=== PATIENT | female | born 1935 | race Caucasian/White ===

== ENCOUNTER 2019-02-08 16:03 | Emergency (ER) | payer MEDICARE, SELFPAY ==
[2019-02-08 16:05] VITALS: BP 145/74; PULSE 85; RESP 16; TEMP 36.5; O2SAT 97; BMI 17.2
--- NOTE | 2019-02-08 16:16 | EKG12_ITS ---
Test Reason : CP Blood Pressure : / mmHG Vent. Rate : 090 BPM Atrial Rate : 090 BPM P-R Int : 150 ms QRS Dur : 082 ms QT Int : 362 ms P-R-T Axes : 079 074 027 degrees QTc Int : 442 ms Normal sinus rhythm Possible Left atrial enlargement Nonspecific T wave abnormality Borderline ECG Confirmed by GERI RUTH, GERARD ([id number]), editorial director MARISOL LEON ([id number] on 02/11/2019 11:58:16 AM Referred By: KING/ZHANG/NICOLE/JAVY Confirmed By:GERARD NEVAREZ MD
--- NOTE | 2019-02-08 16:16 | RAD_ITS ---
STUDY: X-RAY CHEST REASON FOR EXAM: Female, 83 years old. Lower chest pain today TECHNIQUE: AP COMPARISON: None. FINDINGS: EKG leads project over the chest. The lungs are clear and expanded. There is no demonstrated pleural abnormality. Normal size heart. Normal mediastinum and keya. Normal visualized pulmonary arteries. There is atherosclerotic calcification of the aortic arch with tortuosity. Normal visualized thoracic spine. Normal visualized ribs, clavicles, and shoulders. There is no demonstrated abnormality of the visualized soft tissue structures of the upper abdomen. RAD/Chest 1 View (Portable) IMPRESSION: Nonacute portable x-ray examination of the chest. Electronically Signed: Jordin Murphy MD at 17:01 EDT , Service support ,
[2019-02-08 16:21] VITALS: O2SAT 97
[2019-02-08] MEDS: Aspirin 81 MG TAB.CHEW 324 MG PO (16:27)
[2019-02-08] MEDS: 0.9% Normal Saline 1,000 ML 150 ML IV (16:27)
--- NOTE | 2019-02-08 16:47 | ED.DCSUM_ITS ---
- ER Visit Summary Date of Service: 02/08/19 Chief Complaint: [Chest pain] History of Present Illness: The patient is a 83 F [resents to the emergency department complaint of chest pain started yesterday. Patient states that it was throughout the night and she really had a hard time sleeping. Patient stat es the pain was kind of a sore feeling that was sharp intermittently and also times with 3 or 4 out of 10. She really did not feel short of breath with it. Patient noticed it more when she turned to the left side of her chest. Patient states pain was worse with breathing. Patient had some mild nausea with it and this morning feels somewhat fatigued. Patient was seen at urgent care and was referred to the ER for valuation of her chest pain. She denies any recent travel or surgery. Patient has not had pain like that before. She has no heart history.] Patient is currently not having any chest pain. Physical Examination: [HEENT-PERRLA, EOMI. Cranial nerves II through XII grossly intact. TMs clear. Mucous membranes moist. No adenopathy. Cardiovascular-regular rate and rhythm without murmur or ectopy Lungs-clear to auscultation, chest wall stable without crepitus or subcu emphysema. Chest wall-patient has no tenderness on palpation of the chest wall. Abdomen-normoactive bowel sounds, soft, nontender, no rebound or rigidity, no peritoneal signs. Extremities-intact ?4, normal range of motion, normal pulses, atraumatic] Test Results: [EKG obtained on arrival shows sinus rhythm with a ventricular rate of 90 bpm with no acute ST segment changes. CBC with differential showed a white count of 7.7, hemoglobin 12, hematocrit 36, platelets 327. Chemistries unremarkable. Troponin was less than 0.015. D-dimer was less than 0.27. Chest x-ray was normal.] Emergency Department Course and Treatment: [Patient initially received aspirin on arrival. Patient was pain-free on arrival.] Treatment Plan: [Patient had had symptoms for greater than 12 hours continuously. Her chest discomfort sounds very atypical and her only risk factor for heart disease as her age. Her PEDRO risk score was a 1 out of 7. I feel patient is very low risk for cardiac disease as the etiology of her symptoms. Patient did ask if this could be anxiety. Patient [place] and she is wondering if she was just very anxious and nervous. At this point I advised her to return if persistent or worsening symptoms. Patient to follow-up with her primary care physician within next 3 to 5 days.] Patient is comfortable with going home. Disposition: Discharged home in stable condition. [] Impression: [Chest [id number] uncertain] This note was generated with [employer] dictation software. It may contain incorrect words, spelling, and punctuation that were not noted in review of the chart prior to signing ED Disposition - Plan for ED Patient: Referrals: Julito Lozano MD [Primary Care Provider] -
[2019-02-08 17:07] LABS: Absolute Lymphocyte Count 1.89 X10^3/ul (0.83-4.51); Absolute Neutrophil Count 4.6 X10^3/uL (2.0-7.7); Basophil# 0.04 X10^3/uL; Basophil% 0.5 % (0-1); Eosinophil# 0.11 X10^3/uL; Eosinophils% 1.4 % (0-5); Hematocrit 36.2 % (37-47); Lymphocyte # 1.89 X10^3/ul (4.0); Lymphocyte % 24.6 % (19-41); Mean Corp Hgb Conc 33.1 g/gl (32-36); Mean Corpuscular Hgb 30.5 pg (27.0-32.0); Mean Corpuscular Volume 92.1 fL (81-99); Mean Platelet Vol. 10.2 fl (6.2-12.0); Monocyte# 1.07 X10^3/uL; Neutrophil # 4.55 X10^3/uL (2.7-7.7); Neutrophil % 59.4 % (47-70); POSITIVE COUNT NO; POSITIVE DIFFERENTIAL NO; POSITIVE MORPHOLOGY NO; Platelet Count 327 K/mm3 (150-450); RBC Distribution Width CV 11.7 % (11.6-14.6); RBC Distribution Width SD 39.3 fl (35.1-43.9); Red Blood Count 3.93 M/mm3 (4.2-5.4); White Blood Count 7.7 K/mm3 (4.4-11.0)
[2019-02-08 17:14] LABS: Anion Gap 3 (5-15); BUN 20 mg/dL (7-18); BUN/Creat Ratio 28.2 RATIO (10-20); Calcium,Total 9.8 mg/dL (8.5-10.1); Chloride 102 mmol/L (98-107); Creatinine, Serum 0.71 mg/dL (0.55-1.02); EST Glomerular Filtration Rate 84 mL/min (>60); Est Glom Filt Rate - Afr Amer 102 mL/min (>60); Estimated Creatinine Clearance 30.79 ml/min; Glucose 99 mg/dL (74-106); Potassium 3.7 mmol/L (3.5-5.1); Sodium Level 135 mmol/L (136-145)
[2019-02-08 17:15] LABS: D-Dimer Quantitative (DVT/PE) < 0.27 FEU/ug/m (0.27-0.49)
--- NOTE | 2019-02-08 17:55 | ED.DEP ---
ED Disposition - Plan for ED Patient: Instructions: CHEST PAIN, Uncertain Cause Referrals: Julito Lozano MD [Primary Care Provider] - 3-5 Days
[2019-02-08 18:06] VITALS: BP 135/63; PULSE 72; RESP 16; O2SAT 98
== END 2019-02-08 18:07 | disposition home or self-care (01) ==
LOC: ED 16:52
PROVIDERS: Emergency Provider Emergency Medicine; Family Provider Family Medicine; PCP Family Medicine
DX: R07.89 Other chest pain (principal)
CPT/HCPCS: 71045; 80048; 84484; 85025; 85379; 93005; 96360; 96361; 99284; J7030; A4216

== ENCOUNTER 2023-01-22 17:24 | Emergency (ER) | payer MEDICARE, SELFPAY ==
[2023-01-22 17:27] VITALS: BP 135/60; PULSE 86; RESP 16; TEMP 36.6; O2SAT 96; BMI 15.3
--- NOTE | 2023-01-22 18:40 | EKG12_ITS ---
Test Reason : GEN ILL Blood Pressure : / mmHG Vent. Rate : 079 BPM Atrial Rate : 079 BPM P-R Int : 138 ms QRS Dur : 074 ms QT Int : 344 ms P-R-T Axes : 062 017 025 degrees QTc Int : 394 ms Normal sinus rhythm Normal ECG Confirmed by PRAVIN RUTH, KASANDRA ([id number]), makeup editor JOSE POLLOCK ([id number]) on 01/24/2023 11:18:54 AM Referred By: Confirmed By:KASANDRA COSTELLO MD
[2023-01-22 18:41] VITALS: O2SAT 96
--- NOTE | 2023-01-22 19:02 | EX.ED.DYSGE1 ---
HPI History of Present Illness Chief Complaint: General Illness Narrative Narrative: 87-year-old female presenting with lower extremity edema. She states she was referred to the ER by Dr. Mojica. She states that the lower extremity edema is a new issue for her. Has been wearing compression socks which are helping. She is not complaining of any chest pain or shortness of breath. No orthopnea. No dyspnea on exertion. No fevers or chills. She states she sees Dr. Mojica for history of blood cancer which is in remission. She states that she recently was put on an extended prednisone taper to help with itching of the skin. She states she notes that she had does have to use the restroom a lot. She states that every 4-1/2 minutes that she needs to urinate or defecate. She states that she does not get up fast enough she will not be able hold this. She does complain of some mild lower back pain, but no loss of bladder or bowel control. No saddle anesthesia or paresthesia. Patient is in physical therapy currently to deal with his back problem. She is able to ambulate. PFSH PFS Medical History no medical history Home Medications alendronate 70 mg tablet 70 mg PO Q7D@0700 05/23/13 [History Last Taken 05/18/13] diphenhydramine HCl 25 mg capsule (Banophen) 25 mg PO QHS PRN PRN Sleep 05/23/13 [History Last Taken 05/22/13] Calcium 600 + Vit D Tablet 1 tab PO DAILY 02/08/19 [History Last Taken Unknown] acyclovir 400 mg tablet 400 mg PO BID 02/08/19 [History Last Taken Unknown] Allergy/AdvReac Type Severity Reaction Status Date / Time fexofenadine HCl AdvReac Other Verified 01/22/23 17:29 [From [facility]] Social History Smoking Status: Never smoker ROS ROS ED Constitutional Constitutional ED: Denies chills, fever(s) or subjective Eyes Eyes: Denies change in vision or diplopia ENT ENT ED: Denies rhinorrhea or sore throat Cardiovascular Cardiovascular: Denies chest pain or palpitations Respiratory/Chest Respiratory/Chest: Denies cough or dyspnea Gastrointestinal Gastrointestinal: Denies abdominal pain, constipation, nausea or vomiting Genitourinary Genitourinary ED: Reports urinary frequency; Denies dysuria Musculoskeletal Musculoskeletal: Reports back pain; Denies arthralgias or neck pain Integumentary Denies abscess Neurologic Neurologic: Denies headache(s) or paresthesias Psychiatric Psychiatric: Denies anxiety or depression EXAM Physical Exam Const Vital Signs: 01/22/23 17:27 01/22/23 17:46 01/22/23 18:41 Temperature 97.9 F Temperature Source Temporal Pulse Rate 86 Respiratory Rate 16 Respiratory Effort Normal Non-Labored Respiratory Pattern Normal Blood Pressure 135/60 H Blood Pressure Mean 85 Pulse Ox 96 96 Oxygen Delivery Method Room Air Room Air 01/22/23 19:38 01/22/23 21:15 Temperature Temperature Source Pulse Rate 84 79 Respiratory Rate 22 H 17 Respiratory Effort Respiratory Pattern Blood Pressure 136/60 H 140/62 H Blood Pressure Mean 85 88 Pulse Ox 99 99 Oxygen Delivery Method Room Air Room Air Positive well nourished General Appearance ED: NAD; Negative for pallor HEENT Reports moist mucous membranes Eyes EOMs intact bilaterally General Eye ED: Negative for pale conjunctiva Chest Wall inspection of chest normal Resp normal respiratory effort and clear to auscultation bilaterally GI normal to inspection, nondistended, normoactive bowel sounds Back/Spine no CVA tenderness Neuro oriented x3 and CN's II-XII intact bilaterally Sensorium / Orientation: alert Psych mental status grossly normal Skin no rashes or lesions noted General Skin Exam: Negative for jaundice or pallor MDM MDM MDM Narrative Medical decision making narrative: Patient with lower extremity edema, increasing back pain. Triage note states that there was some intermittent confusion however the patient did not discuss this with me and appeared to be alert and awake and oriented x3. Differential diagnosis includes ACS, CHF, compression fracture, electrolyte abnormalities, dehydration, hyperammonemia, patient presenting with back pain which is not new however it is worsening and she was reported to have intermittent confusion. Her son was not here at the initial interview and she did not mention this. He states he had concerned that he wanted to rule out dementia. He tried to call the doctor's office today to be seen and were referred to the emergency room. Prior to my seeing him and talking to him I did obtain lab work and her CBC was unremarkable and a white blood cell count is 8.6, hemoglobin 11.4, hematocrit 34.3. BMP remarkable for a sodium of 131. CO2 slightly elevated at 33. Creatinine normal. Ammonia normal. High-sensitivity troponin and BNP were normal. EKG on my interpretation shows a sinus rhythm with a ventricular to 79 bpm without sign of ischemic change or ectopy. Chest x-ray my interpretation shows no acute cardiopulmonary process. There is noted to be a T12 compression fracture. Urinalysis negative for infection. BNP is normal. Discussed the findings with the patient and the son expressed his anger that she had already had a work-up that was similar to this at and had had all that stuff transferred to the [facility] docs that care for his mother. I explained to them that ultimately the work-up was reassuring here, and they expressed that she was not getting better with her home physical therapy was having trouble getting around with increased back pain. He states that he was having a difficult time moving her back and forth place to place. He is concerned that he will get her home and then have to get her back into the car for an office appointment tomorrow. The patient and her son request that she be admitted for placement into intermediate given her worsening back pain and difficulty getting around. Impression: 1. T12 compression fracture?worsening 2. Confusion Lab Data Attestation: I reviewed the patient's lab results. Labs: Laboratory Results - last 24 hr 01/22/23 01/22/23 01/22/23 18:52 19:03 19:03 WBC 8.6 RBC 3.38 L Hgb 11.4 L Hct 34.4 L MCV 101.8 H MCH 33.7 H MCHC 33.1 RDW Std Deviation 45.9 H RDW Coeff of [place]avon 12.4 Plt Count 285 MPV 10.2 Immature Gran % (Auto) 1.400 H Neut % (Auto) 82.7 H Lymph % (Auto) 6.3 L [place] % (Auto) 8.5 Eos % (Auto) 0.6 Baso % (Auto) 0.5 Absolute Neuts (auto) 7.1 Absolute Lymphs (auto) 0.54 L Nucleated RBC % 0 Differential Comment SCANNED Sodium Cancelled Potassium Cancelled Chloride Cancelled Carbon Dioxide Cancelled Anion Gap Cancelled BUN Cancelled Creatinine Cancelled Estim Creat Clear Calc Cancelled Est GFR (MDRD) Af Amer Cancelled Est GFR (MDRD) Non-Af Cancelled BUN/Creatinine Ratio Cancelled Glucose Cancelled Calcium Cancelled Ammonia Troponin I High Sens Cancelled B-Natriuretic Peptide Urine Color Yellow Urine Clarity Clear Urine pH 7.0 Ur Specific [place] 1.010 Urine Protein Negative Urine Glucose (UA) Normal Urine Ketones Negative Urine Occult Blood 10 H Urine Nitrite Negative Urine Bilirubin Negative Urine Urobilinogen Normal Ur Leukocyte Esterase 25 H Urine RBC 0 SEEN Urine WBC 0-5 SEEN Ur Squamous Epith Cells 0 SEEN Urine Bacteria 0 SEEN Urine Mucus 0 SEEN 01/22/23 01/22/23 19:03 19:41 WBC RBC Hgb Hct MCV MCH MCHC RDW Std Deviation RDW Coeff of [place] Plt Count MPV Immature Gran % (Auto) Neut % (Auto) Lymph % (Auto) [place] % (Auto) Eos % (Auto) Baso % (Auto) Absolute Neuts (auto) Absolute Lymphs (auto) Nucleated RBC % Differential Comment Sodium 131 L Potassium 4.4 Chloride 95 L Carbon Dioxide 33.0 H Anion Gap 3 L BUN 18 Creatinine 0.37 L Estim Creat Clear Calc 27.10 Est GFR (MDRD) Af Amer 216 Est GFR (MDRD) Non-Af 179 BUN/Creatinine Ratio 49.2 H Glucose 83 Calcium 9.2 Ammonia < 10.0 L Troponin I High Sens 9 B-Natriuretic Peptide 35.2 Urine Color Urine Clarity Urine pH Ur Specific [place] Urine Protein Urine Glucose (UA) Urine Ketones Urine Occult Blood Urine Nitrite Urine Bilirubin Urine Urobilinogen Ur Leukocyte Esterase Urine RBC Urine WBC Ur Squamous Epith Cells Urine Bacteria Urine Mucus Radiography Diagnostic Testing: Clinical Impression(s) from Imaging Studies Chest X-Ray 01/22/23 19:10 IMPRESSION: 1. Hyperexpanded lungs without acute infiltrate or mass. 2. Worsening compression deformity of what is thought to be the T12 vertebra. Electronically Signed: Ky Villatoro DO at 19:24 EDT Reading Location ID and State: [address] [place] [address] Tel [phone], Service support , Discharge Plan Triage Chief Complaint: General Illness ED Provider: Ronald Fitzpatrick Dx/Rx/DC Orders Prescriptions: No Action alendronate 70 MG tablet 70 mg PO Q7D@0700 Label Comments: [facility] diphenhydramine HCl [Banophen] 25 MG capsule 25 mg PO QHS PRN PRN (Reason: Sleep) Label Comments: SLEEP acyclovir 400 MG tablet 400 mg PO BID Label Comments: take 1 tablet by mouth twice a day Calcium 600 + Vit D Tablet 1 tab PO DAILY Primary Care Provider: Julito Lozano Referrals: Julito Lozano MD [Primary Care Provider] -
[2023-01-22 19:09] LABS: Bacteria 0 SEEN /hpf (None Seen); Mucous, Urine 0 SEEN /hpf (<or=2+); Red Blood Cells-Urine 0 SEEN /hpf (0-5); Squamous Epithelial Cells - UA 0 SEEN /hpf (5-10)
[2023-01-22 19:09] LABS: Absolute Lymphocyte Count 0.54 X10^3/uL (0.83-4.51); Absolute Neutrophil Count 7.1 X10^3/uL (2.0-7.7); Basophil# 0.04 X10^3/uL; Basophil% 0.5 % (0-1); Eosinophil# 0.05 X10^3/uL; Eosinophils% 0.6 % (0-5); Hematocrit 34.4 % (37-47); Hemoglobin 11.4 g/dL (12.0-15.0); Lymphocyte # 0.54 X10^3/ul (0.83-4.51); Lymphocyte % 6.3 % (19-41); Mean Corp Hgb Conc 33.1 g/dL (32-36); Mean Corpuscular Hgb 33.7 pg (27.0-32.0); Mean Corpuscular Volume 101.8 fL (81-99); Mean Platelet Vol. 10.2 fl (6.2-12.0); Monocyte# 0.73 X10^3/uL; Monocyte% 8.5 % (0-10); NRBC Flagged by Analyzer 0 % (0-5); Neutrophil # 7.08 X10^3/uL (2.7-7.7); Neutrophil % 82.7 % (47-70); POSITIVE DIFFERENTIAL YES; Platelet Count 285 K/mm3 (150-450); RBC Distribution Width CV 12.4 % (11.6-14.6); RBC Distribution Width SD 45.9 fl (35.1-43.9); Red Blood Count 3.38 M/mm3 (4.2-5.4); White Blood Count 8.6 K/mm3 (4.4-11.0)
--- NOTE | 2023-01-22 19:10 | RAD_ITS ---
STUDY: X-RAY CHEST REASON FOR EXAM: Female, 87 years old. Chest pain. TECHNIQUE: Single AP portable view of the chest. COMPARISON: February 08, 2019. FINDINGS: The lungs are hyperexpanded. There is no infiltrate or mass. No pneumothorax. There is no demonstrated pleural abnormality. Normal size heart. Normal mediastinum and keya. Normal visualized pulmonary arteries. There is atherosclerotic calcification of the aortic arch with tortuosity. There are diffuse degenerative changes of the visualized thoracic spine. There is a compression fracture of what appears to be the T12 vertebra. This has worsened since the previous examination. There is degenerative osteoarthritis of the bilateral shoulders. There is no demonstrated abnormality of the visualized soft tissue structures of the upper abdomen. RAD/Chest 1 View (Portable) IMPRESSION: 1. Hyperexpanded lungs without acute infiltrate or mass. 2. Worsening compression deformity of what is thought to be the T12 vertebra. Electronically Signed: Ky Villatoro DO at 19:24 EDT ,
[2023-01-22 19:11] LABS: Differential Indicated SCAN CRITERIA MET
[2023-01-22 19:14] LABS: Color, Urine Yellow (Yellow); Glucose, Dipstick Normal (Normal); Ketone-Dipstick Negative (Negative); Leukocyte Esterase-Dipstick 25 /ul (Negative); Nitrite-Dipstick Negative (Negative); Occult Blood-Urine 10 /ul (Negative); Protein-Dipstick Negative (Negative); Urine Bilirubin Dipstick Negative (Negative); Urine Clarity Clear (Clear); Urine Urobilinogen Normal (Normal)
[2023-01-22 19:25] LABS: White Blood Cells 0-5 SEEN /hpf (0-5)
[2023-01-22 19:35] LABS: Differential Comment SCANNED
[2023-01-22 19:38] VITALS: BP 136/60; PULSE 84; RESP 22; O2SAT 99
[2023-01-22 19:58] LABS: Ammonia < 10.0 umol/L (11-32); BNP,B-Type NATRIURETIC PEPTIDE 35.2 pg/mL (0-100)
[2023-01-22 20:58] LABS: Anion Gap 3 (5-15); BUN 18 mg/dL (7-18); BUN/Creat Ratio 49.2 RATIO (10-20); Calcium,Total 9.2 mg/dL (8.5-10.1); Chloride 95 mmol/L (98-107); Creatinine, Serum 0.37 mg/dL (0.55-1.02); EST Glomerular Filtration Rate 179 mL/min (>60); Est Glom Filt Rate - Afr Amer 216 mL/min (>60); Glucose 83 mg/dL (74-106); Potassium 4.4 mmol/L (3.5-5.1); Sodium Level 131 mmol/L (136-145); Troponin-I HS (w/2H Reflex) 9 pg/mL (3.0-54.0)
[2023-01-22 21:15] VITALS: BP 140/62; PULSE 79; RESP 17; O2SAT 99
[2023-01-22 21:46] LABS: Reflex Troponin-HS? (from REC) Y
--- NOTE | 2023-01-22 22:51 | EDS_ITS ---
HPI History of Present Illness Chief Complaint: General Illness PFSH PFS Medical History no medical history Home Medications alendronate 70 mg tablet 70 mg PO Q7D@0700 05/23/13 [History Last Taken 05/18/13] diphenhydramine HCl 25 mg capsule (Banophen) 25 mg PO QHS PRN PRN Sleep 05/23/13 [History Last Taken 05/22/13] Calcium 600 + Vit D Tablet 1 tab PO DAILY 02/08/19 [History Last Taken Unknown] acyclovir 400 mg tablet 400 mg PO BID 02/08/19 [History Last Taken Unknown] hydrocodone-acetaminophen 5-325mg 5mg-325mg 1 tab PO Q6H PRN PRN Pain 3 days #12 TABLETS 01/22/23 [Rx Last Taken Unknown] Allergy/AdvReac Type Severity Reaction Status Date / Time fexofenadine HCl AdvReac Other Verified 01/22/23 17:29 [From [facility]] Social History Smoking Status: Never smoker EXAM Physical Exam Const Vital Signs: 01/22/23 17:27 01/22/23 17:46 01/22/23 18:41 Temperature 97.9 F Temperature Source Temporal Pulse Rate 86 Respiratory Rate 16 Respiratory Effort Normal Non-Labored Respiratory Pattern Normal Blood Pressure 135/60 H Blood Pressure Mean 85 Pulse Ox 96 96 Oxygen Delivery Method Room Air Room Air 01/22/23 19:38 01/22/23 21:15 Temperature Temperature Source Pulse Rate 84 79 Respiratory Rate 22 H 17 Respiratory Effort Respiratory Pattern Blood Pressure 136/60 H 140/62 H Blood Pressure Mean 85 88 Pulse Ox 99 99 Oxygen Delivery Method Room Air Room Air MDM MDM Lab Data Labs: Laboratory Results - last 24 hr 01/22/23 01/22/23 01/22/23 18:52 19:03 19:03 WBC 8.6 RBC 3.38 L Hgb 11.4 L Hct 34.4 L MCV 101.8 H MCH 33.7 H MCHC 33.1 RDW Std Deviation 45.9 H RDW Coeff of Donavon 12.4 Plt Count 285 MPV 10.2 Immature Gran % (Auto) 1.400 H Neut % (Auto) 82.7 H Lymph % (Auto) 6.3 L [place] % (Auto) 8.5 Eos % (Auto) 0.6 Baso % (Auto) 0.5 Absolute Neuts (auto) 7.1 Absolute Lymphs (auto) 0.54 L Nucleated RBC % 0 Differential Comment SCANNED Sodium Cancelled Potassium Cancelled Chloride Cancelled Carbon Dioxide Cancelled Anion Gap Cancelled BUN Cancelled Creatinine Cancelled Estim Creat Clear Calc Cancelled Est GFR (MDRD) Af Amer Cancelled Est GFR (MDRD) Non-Af Cancelled BUN/Creatinine Ratio Cancelled Glucose Cancelled Calcium Cancelled Ammonia Troponin I High Sens Cancelled B-Natriuretic Peptide Urine Color Yellow Urine Clarity Clear Urine pH 7.0 Ur Specific [place] 1.010 Urine Protein Negative Urine Glucose (UA) Normal Urine Ketones Negative Urine Occult Blood 10 H Urine Nitrite Negative Urine Bilirubin Negative Urine Urobilinogen Normal Ur Leukocyte Esterase 25 H Urine RBC 0 SEEN Urine WBC 0-5 SEEN Ur Squamous Epith Cells 0 SEEN Urine Bacteria 0 SEEN Urine Mucus 0 SEEN 01/22/23 01/22/23 19:03 19:41 WBC RBC Hgb Hct MCV MCH MCHC RDW Std Deviation RDW Coeff of [place]avon Plt Count MPV Immature Gran % (Auto) Neut % (Auto) Lymph % (Auto) [place] % (Auto) Eos % (Auto) Baso % (Auto) Absolute Neuts (auto) Absolute Lymphs (auto) Nucleated RBC % Differential Comment Sodium 131 L Potassium 4.4 Chloride 95 L Carbon Dioxide 33.0 H Anion Gap 3 L BUN 18 Creatinine 0.37 L Estim Creat Clear Calc 27.10 Est GFR (MDRD) Af Amer 216 Est GFR (MDRD) Non-Af 179 BUN/Creatinine Ratio 49.2 H Glucose 83 Calcium 9.2 Ammonia < 10.0 L Troponin I High Sens 9 B-Natriuretic Peptide 35.2 Urine Color Urine Clarity Urine pH Ur Specific [place] Urine Protein Urine Glucose (UA) Urine Ketones Urine Occult Blood Urine Nitrite Urine Bilirubin Urine Urobilinogen Ur Leukocyte Esterase Urine RBC Urine WBC Ur Squamous Epith Cells Urine Bacteria Urine Mucus Radiography Diagnostic Testing: Clinical Impression(s) from Imaging Studies Chest X-Ray 01/22/23 19:10 IMPRESSION: 1. Hyperexpanded lungs without acute infiltrate or mass. 2. Worsening compression deformity of what is thought to be the T12 vertebra. Electronically Signed: Ky Villatoro DO at 19:24 EDT Reading Location ID and State: [facility] / [place] Tel [phone], Service support , Discharge Plan Triage Chief Complaint: General Illness ED Provider: Ronald Fitzpatrick Dx/Rx/DC Orders Instructions: ED Fracture, Vertebral Compression Prescriptions: New hydrocodone-acetaminophen 5-325 mg tablet 1 tab PO Q6H PRN PRN (Reason: Pain) 3 Days Qty: 12 0RF No Action alendronate 70 MG tablet 70 mg PO Q7D@0700 Label Comments: [facility] diphenhydramine HCl [Banophen] 25 MG capsule 25 mg PO QHS PRN PRN (Reason: Sleep) Label Comments: SLEEP acyclovir 400 MG tablet 400 mg PO BID Label Comments: take 1 tablet by mouth twice a day Calcium 600 + Vit D Tablet 1 tab PO DAILY Primary Care Provider: Julito Lozano Referrals: Julito Lozano MD [Primary Care Provider] - Disposition Disposition: Home, Self Care Discharge Date/Time: 01/22/23 23:38
[2023-01-22 23:11] LABS: Troponin-I HS 9 pg/mL (3.0-54.0)
== END 2023-01-22 23:38 | disposition home or self-care (01) ==
PROVIDERS: Emergency Provider Student in an Organized Health Care Education/Training Program; PCP Family Medicine; Visit Provider Student in an Organized Health Care Education/Training Program
DX: S22.080A Wedge compression fracture of T11-T12 vertebra, initial encounter for closed fracture (principal); R41.0 Disorientation, unspecified; X58.XXXA Exposure to other specified factors, initial encounter
CPT/HCPCS: 71045; 80048; 81001; 82140; 83880; 84484; 85025; 93005; 99285; A4216